=== PATIENT | female | born 1935 | race Caucasian/White ===

== ENCOUNTER 2017-06-14 08:42 | Emergency (ER) | payer OTHER ==
[2017-06-14 08:50] VITALS: TEMP 98.2
[2017-06-14 09:13] LABS: COLOR YELLOW; LEUKOCYTE ESTERASE,URINE 1+ (NEGATIVE); NITRITE,URINE NEGATIVE (NEGATIVE)
[2017-06-14 09:44] LABS: AMORPHOUS PRESENT /hpf (NONE-1+); MUCUS TRACE /lpf (NONE-1+)
--- NOTE | 2017-06-14 09:45 | EDPHY ---
H & P Stated Complaint: left flank pain this am which is now resolved Time Seen by Provider: 06/14/17 09:00 HPI/ROS: CHIEF COMPLAINT: left lower back pain HISTORY OF PRESENT ILLNESS: 81-year-old female presents emergency department with her complaining of acute on chronic left-sided lower back pain. Patient reports she has had back pain intermittently for many years and has been seen at [facility]. Her pain has been gone for about a year until 2 weeks ago when it started coming back. This morning her pain was worse. Pain is worse with movement and palpation. Patient denies fevers or chills, no urinary frequency, urgency or dysuria. She denies any recent trauma. No loss of control of her bowel or bladder, no saddle anesthesias. Patient states that since arriving to the emergency department her pain had almost completely resolved. REVIEW OF SYSTEMS: A comprehensive 10 point review of systems is otherwise negative aside from elements mentioned in the history of present illness. Source: Patient, Family Exam Limitations: No limitations - Personal History Current Tetanus/Diphtheria Vaccine: Yes - Medical/Surgical History Hx Asthma: No Hx Chronic Respiratory Disease: No Hx Diabetes: No Hx Cardiac Disease: No Hx Renal Disease: No Hx Cirrhosis: No Hx Alcoholism: No Hx HIV/AIDS: No Hx Splenectomy or Spleen Trauma: No Other PMH: pmh- atrial fibrillation, depression, hypothyroid, mesenteric adenitis, macular degeneration - Social History Smoking Status: Never smoked - Physical Exam Exam: Physical Exam Gen: Alert and Oriented, NAD HEENT: PERRL, moist mucous membranes NECK: no meningismus CV: regular rate and regular rhythm PULM: CTAB, no wheezes ABDOMEN: soft, non tender to palpation, BS present, no pulsatile masses BACK: No CVA tenderness, mild thoracic left-sided paraspinal tenderness to palpation NEURO: Neurologically grossly intact, 2/4 deep tendon reflexes patellar and Achilles, 5/5 strength, negative straight leg raise bilaterally EXTREMITIES: normal appearing SKIN: no rash or break in skin on exposed skin PSYCH: answers questions appropriately. Constitutional: Initial Vital Signs Temperature (C) 36.8 C 06/14/17 08:48 Heart Rate 94 06/14/17 08:48 Respiratory Rate 18 06/14/17 08:48 Blood Pressure 197/94 H 06/14/17 08:48 O2 Sat (%) 94 06/14/17 08:48 O2 Delivery Mode Room Air Allergies/Adverse Reactions: Penicillins Allergy (Verified 10/11/14 08:38) Rash Home Medications: Medication Instructions Recorded Levothyroxine [Synthroid 75 mcg 75 mcg PO DAILY 10/11/14 (*)] Ascorbic Acid [Vitamin C 500 mg 500 mg PO DAILY PRN 08/22/15 (*)] Aspirin 81mg (*) 06/14/17 Lidocaine 5% [Lidoderm 5% Patch 1 ea TD DAILY #5 patch 06/14/17 (*)] Medical Decision Making - Diagnostics Imaging Results: Imaging Impressions Thoracic Spine X-Ray 06/14/17 09:29 Impression: 1. No new osseous abnormality seen associated with the thoracic spine. 2. Underlying osteoporosis. Imaging: I viewed and interpreted images myself ED Course/Re-evaluation: Thoracic spine x-ray obtained. Urinalysis obtained showing no blood, 3-5 WBCs. I think the patient's back pain is musculoskeletal in nature. She has been given a dose of Tylenol and a lidocaine patch has been placed. I have recommended follow up with her primary care doctor early next week for referral for physical therapy. She is given a prescription for lidocaine patches and is given return precautions for any neurovascular compromise. Patient and are comfortable with this plan. Differential Diagnosis: The differential diagnosis for the patient's back pain included but was not limited to musculo-skeletal pain, epidural abscess, herniated disk, spinal fracture, cauda equina and intra-abdominal causes including urinary system. - Data Points Laboratory Results: 06/14/17 08:50 Urine Color YELLOW Urine Appearance MODERATELY TURBID Urine pH 8.0 H (5.0-7.5) Ur Specific [place] 1.020 (1.002-1.030) Urine Protein NEGATIVE (NEGATIVE) Urine Ketones NEGATIVE (NEGATIVE) Urine Blood NEGATIVE (NEGATIVE) Urine Nitrate NEGATIVE (NEGATIVE) Urine Bilirubin NEGATIVE (NEGATIVE) Urine Urobilinogen NEGATIVE EU EU (0.2-1.0) Ur Leukocyte Esterase 1+ H (NEGATIVE) Urine RBC 1-3 /hpf /hpf (0-3) Urine WBC 3-5 /hpf H /hpf (0-3) Ur Epithelial Cells TRACE /lpf /lpf (NONE-1+) Amorphous Sediment PRESENT /hpf /hpf (NONE-1+) Urine Mucus TRACE /lpf /lpf (NONE-1+) Urine Glucose NEGATIVE (NEGATIVE) Departure - Departure Disposition: Home, Routine, Self-Care Clinical Impression: Acute exacerbation of chronic low back pain Condition: Good Instructions: Chronic Back Pain (ED), Lower Back Exercises (ED) Additional Instructions: Take 650 mg of tylenol every 8 hours as needed for pain. Use lidocaine patches as prescribed. Follow up with Dr. Gibbons early next week. Return to the emergency department for any loss of control of her bowel or bladder, numbness to your groin, worsening symptoms, new symptoms or concerns. Referrals: Muna Gibbons MD [Primary Care Provider] - As per Instructions Prescriptions: Lidocaine 5% [Lidoderm 5% Patch (*)] 1 ea TD DAILY #5 patch
[2017-06-14] MEDS ORDERED: LIDOCAINE 5% 1 EA PATCH TD ONE ×2 (10:17→11:18)
[2017-06-14] MEDS ORDERED: ACETAMINOPHEN 325 MG TAB PO ONE (10:28)
[2017-06-14 11:22] VITALS: BP 146/77; PULSE 75; RESP 16; O2SAT 93
[2017-06-14] MEDS ORDERED: PATCH REMOVAL 1 EA PATCH TD SCH (21:00)
== END 2017-06-14 11:22 | disposition home or self-care (01) ==
DX: M54.5 Low back pain (principal); G89.29 Other chronic pain; Z79.82 Long term (current) use of aspirin

== ENCOUNTER 2017-06-18 09:59 | Emergency (ER) | payer OTHER ==
[2017-06-18 10:05] VITALS: O2SAT 93
--- NOTE | 2017-06-18 10:17 | EDPHY ---
HPI/HX/ROS/PE/MDM Narrative: CHIEF COMPLAINT: Left leg pain HPI: The patient is an 81 y/o female arriving with her complaining of left lower leg pain for the last 4 days. She has a history of atrial fibrillation, depression, and provoked PE. She was evaluated in the ED 4 days ago for chronic back pain and discharged with lidocaine patches and recommendation to follow up with Steven Sun and a PT. She complains of atraumatic pain along the lateral aspect of her left calf that is aggravated by standing and walking, but almost entirely by resting. She is able to ambulate without assistance despite pain. Her is concerned about a blood clot in her leg. She denies paresthesias, weakness, incontinence, dysuria, hematuria, hip pain, fever, or other complaints. She is supposed to take a daily 81mg aspirin, but does not use anticoagulants. REVIEW OF SYSTEMS: Aside from elements discussed in the HPI, a comprehensive 10-point review of systems was reviewed and is negative. PMH: Atrial fibrillation (previously on Coumadin), provoke PE, depression, hypothyroidism, mesenteric adenitis, depression, macular degeneration Prior medical records reviewed including ED visit 06/14/17 for back pain. SOCIAL HISTORY: at bedside. Retired. Lives in [place]. Nonsmoker. 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 ENT:Eyes are normal to inspection. ENT inspection normal. Neck: Normal inspection. Full range of motion. Respiratory:No respiratory distress. Breath sounds normal bilaterally. Cardiovascular: Regular rate and rhythm. Strong peripheral pulses. Normal cap refill. Abdomen:The abdomen is nontender to palpation. There are no peritoneal signs. Back: Normal to inspection. No tenderness to palpation. Skin: Normal color. No rash. Warm and dry. Extremities: Normal appearance. Full range of motion. Lower extremities are symmetric without discoloration, swelling, or tenderness. Neuro: Oriented x3. Normal motor function. Normal sensory function. ED Course: Patient declines pain medication. Left lower extremity US ordered. Left leg US: Femoral vein DVT. Reassessed patient and discussed imaging results. Her symptoms continue to be very minimal while at rest. She will be discharged on Eliquis with standard DVT follow up and care instructions. Strict return precautions given. She and her agree with this plan. MDM: This patient presents with leg pain and is found to have a DVT. She has been on both coumadin and Pradaxa in the past but is not currently on any anticoagulation. I discussed options with her and her , including lovenox henrique and they would like to try initial treatment with Eliquis. I stressed the importance of close follow-up with PCP. I see no indication of PE at this time, as patient has no tachycardia or complaint of chest pain or SOB. - Data Points Imaging Results: Imaging Impressions Extremity Venous Study 06/18/17 10:22 Impression: 1. Positive deep venous thrombosis in the left common femoral vein and adjacent femoral vein junction. 2. 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 Findings and recommendations discussed with Emergency Department physician, Martin Martin MD at 1249 hour, 06/18/2017. Final report concurs with initial preliminary interpretation. Imaging: Discussed imaging studies w/ banquet server on call Radiologist General Time Seen by Provider: 06/18/17 10:09 Initial Vital Signs: Initial Vital Signs Temperature (C) 36.6 C 06/18/17 10:02 Heart Rate 85 06/18/17 10:02 Respiratory Rate 18 06/18/17 10:02 Blood Pressure 156/63 H 06/18/17 10:02 O2 Sat (%) 93 06/18/17 10:02 O2 Delivery Mode Room Air Allergies/Adverse Reactions: Penicillins Allergy (Verified 06/18/17 10:02) Rash Home Medications: Medication Instructions Recorded Levothyroxine [Synthroid 75 mcg 75 mcg PO DAILY 10/11/14 (*)] Ascorbic Acid [Vitamin C 500 mg 500 mg PO DAILY PRN 08/22/15 (*)] Aspirin 81mg (*) 06/14/17 Lidocaine 5% [Lidoderm 5% Patch 1 ea TD DAILY #5 patch 06/14/17 (*)] Apixaban [Eliquis] 10 mg PO BID 7 Days tablet 06/18/17 Departure - Departure Disposition: Home, Routine, Self-Care Clinical Impression: Left leg DVT Condition: Good Instructions: Apixaban (By mouth), Deep Venous Thrombosis (ED) Additional Instructions: 1. Take Eliquis as prescribed every day. You have been given a prescription that lasts 1 week. You need to see your primary care provider to get a [facility] prescription for this. 2. Follow up with Dr. Gibbons within 72 hours without fail. 3. Return to the ED for severe pain, chest pain, shortness of breath, weakness or numbness in your foot, or other worsening of condition. Referrals: Muna Gibbons MD [Primary Care Provider] - As per Instructions Prescriptions: Apixaban [Eliquis] 10 mg PO BID 7 Days tablet Report Scribed for: Martin Martin Report Scribed by: Pattie Evans Date of Report: 06/18/17 Time of Report: 10:25 Physician Review and Approval Statement: Portions of this note were transcribed by an ED scribe. I personally performed the history, physical exam, and medical decision making; and confirm the accuracy of the information in the transcribed note.
[2017-06-18 12:53] VITALS: BP 159/73; PULSE 69; RESP 16; TEMP 98.1
[2017-06-18] MEDS ORDERED: APIXABAN 5 MG TAB PO ONE (13:02)
== END 2017-06-18 13:22 | disposition home or self-care (01) ==
DX: I82.402 Acute embolism and thrombosis of unspecified deep veins of left lower extremity (principal); Z79.82 Long term (current) use of aspirin

== ENCOUNTER 2017-06-23 12:59 | Emergency (ER) | payer OTHER ==
[2017-06-23 13:10] VITALS: TEMP 97.9
--- NOTE | 2017-06-23 14:41 | EDPHY ---
H & P Time Seen by Provider: 06/23/17 14:27 HPI/ROS: CHIEF COMPLAINT: DVT left lower extremity. HISTORY OF PRESENT ILLNESS: The patient is a an 81-year-old female with left lower DVT diagnosed 06/18/17. The patient was started on Eliquis, but has accidently been taking half of the prescribed dose. The patient's thought she was only supposed to take 1 tablet twice per day, but read the directions today and saw she was supposed to be taking two tablets twice per day. The patient feels like her pain has not improved. She continues to have pain with ambulation. Able to ambulate with a steady gait. The patient's is unsure if she appears in more pain. No change in swelling. No taking pain medication. She denies chest pain or shortness of breath. ROS: No numbness, weakness, excessive bleeding, syncopal episode, other injury. Past Medical/Surgical History: LLE DVT diagnosed 06/18/17, A-fib, Depression, Hypothyroidism, Mesenteric adenitis, Macular degeneration, Bakers cyst. Social History: . Lives at home with her . 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 Smoking Status: Never smoked Physical Exam: Alert, pleasant, no acute distress Chest: Normal respiratory rate, clear to auscultation CV: Regular rate rhythm Extremities: Left calf swelling and tenderness Skin: Warm and dry, no rash Neuro: Motor and sensory intact Vascular: Capillary refill brisk distally Constitutional: Initial Vital Signs Temperature (C) 36.6 C 06/23/17 13:05 Heart Rate 81 06/23/17 13:05 Respiratory Rate 18 06/23/17 13:05 Blood Pressure 133/82 H 06/23/17 13:05 O2 Sat (%) 95 06/23/17 13:05 O2 Delivery Mode Room Air Allergies/Adverse Reactions: Penicillins Allergy (Verified 06/23/17 13:07) Rash Home Medications: Medication Instructions Recorded Levothyroxine [Synthroid 75 mcg 75 mcg PO DAILY 10/11/14 (*)] Ascorbic Acid [Vitamin C 500 mg 500 mg PO DAILY PRN 08/22/15 (*)] Aspirin 81mg (*) 06/14/17 Lidocaine 5% [Lidoderm 5% Patch 1 ea TD DAILY #5 patch 06/14/17 (*)] Apixaban [Eliquis] 10 mg PO BID 7 Days tablet 06/18/17 Medical Decision Making ED Course/Re-evaluation: The patient has a known LLE DVT diagnosed 06/18/17. She was placed on Eliquis, but has been taking an inappropriate dose. According to her she has been taking 1 tablet twice per day instead of two tablets twice per day. The patient continues to have pain with ambulation and does not feel like her pain has improved. On examination the patient has swelling and tenderness to her left lower extremity. I do not feel that repeat imaging is indicated in this patient. There is no evidence of worsening DVT or PE. I have instructed the patient and her to continue taking the Eliquis, two tablets twice daily , until she follows up with her primary care physician on Saturday. The patient and her understand and agree with the plan. Differential Diagnosis: Differential diagnosis includes though is not limited to pulmonary embolism, worsening DVT, cellulitis, arterial compromise. - Data Points Medications Given: Discontinued Medications Acetaminophen (Tylenol) 650 mg PO EDNOW ONE Stop: 06/23/17 14:47 Last Admin: 06/23/17 15:15 Dose: 650 mg Departure - Departure Disposition: Home, Routine, Self-Care Clinical Impression: DVT (deep venous thrombosis) Qualifiers: DVT location: lower extremity Affected thrombotic vein of extremity: unspecified vein of extremity Chronicity: unspecified Laterality: left Qualified Code(s): I82.402 - Acute embolism and thrombosis of unspecified deep veins of left lower extremity Condition: Good Instructions: Deep Venous Thrombosis (ED) Additional Instructions: Continue taking two tablets of Eliquis twice per day until you see your primary care physician on Saturday. I recommend Tylenol for pain. The appropriate dose of Tylenol for you is 650mg every 4 to 9 hours as needed for pain. Referrals: Martin Martin MD [Primary Care Provider] - As per Instructions Report Scribed for: Juliane Bellamy Report Scribed by: Tita Huitron Date of Report: 06/23/17 Time of Report: 14:41 Physician Review and Approval Statement: 06/23/17 14:41 Portions of this note were transcribed by a medical assistant instructor. I personally performed the history, physical exam, and medical decision-making; and confirmed the accuracy of the information in the transcribed note.
[2017-06-23] MEDS ORDERED: ACETAMINOPHEN 325 MG TAB PO ONE (14:46)
[2017-06-23 15:20] VITALS: BP 126/79; PULSE 79; RESP 16; O2SAT 92
== END 2017-06-23 15:20 | disposition home or self-care (01) ==
DX: I82.402 Acute embolism and thrombosis of unspecified deep veins of left lower extremity (principal); Z79.82 Long term (current) use of aspirin

== ENCOUNTER 2017-09-25 15:02 | Emergency (ER) | payer OTHER ==
[2017-09-25 15:21] VITALS: RESP 16; O2SAT 93
--- NOTE | 2017-09-25 15:38 | EDPHY ---
H & P Time Seen by Provider: 09/25/17 15:28 HPI/ROS: CHIEF COMPLAINT: Urinary frequency HISTORY OF PRESENT ILLNESS: The patient is an 82 y/o female with a history of chronic back pain complaining of urinary frequency. She is urinating every 5 to 10 minutes at times and at least every 30 minutes. Associated with urinary hesitancy She denies flank pain pain, abdominal pain, vomiting, fever. REVIEW OF SYSTEMS: Constitutional: No fever, no chills Eyes: No drainage ENT: No sore throat Respiratory: No cough, no shortness of breath Cardiac: No chest pain Gastrointestinal: no vomiting, no abdominal pain Musculoskeletal: No leg pain or swelling Skin: No rash Neurological: No headache, no weakness Psychiatric: No anxiety Past Medical/Surgical History: Chronic back pain Social History: at bedside, lives in [place], retired Smoking Status: Never smoked Physical Exam: General Appearance: Alert, pleasant Eyes: Pupils equal and round, no conjunctival pallor ENT, Mouth: Mucous membranes moist Neck: Normal inspection Respiratory: Lungs are clear to auscultation Cardiovascular: Regular rate and rhythm Gastrointestinal: Abdomen is soft and non-tender Back: No CVA tenderness Neurological: Alert, nonfocal exam Skin: Warm and dry Extremities: Normal inspection Psychiatric: Mood and affect normal Constitutional: Initial Vital Signs Temperature (C) 36.6 C 09/25/17 15:18 Heart Rate 93 09/25/17 15:18 Respiratory Rate 16 09/25/17 15:18 Blood Pressure 167/80 H 09/25/17 15:18 O2 Sat (%) 93 09/25/17 15:18 O2 Delivery Mode Room Air Allergies/Adverse Reactions: Penicillins Allergy (Verified 09/25/17 15:17) Rash Home Medications: Medication Instructions Recorded Levothyroxine [Synthroid 75 mcg 75 mcg PO DAILY 10/11/14 (*)] Ascorbic Acid [Vitamin C 500 mg 500 mg PO DAILY PRN 08/22/15 (*)] Apixaban [Eliquis] 10 mg PO BID 7 Days tablet 06/18/17 Cephalexin [Keflex (*)] 500 mg PO QID #20 cap 09/25/17 Medical Decision Making ED Course/Re-evaluation: The patient presents with urinary frequency. Urinalysis indicates a UTI. Urine culture sent. Keflex prescribed and first dose given in the ED. - Data Points Laboratory Results: 09/25/17 15:25 Urine Color WALI Urine Appearance MODERATELY TURBID Urine pH 5.0 (5.0-7.5) Ur Specific [place] 1.026 (1.002-1.030) Urine Protein 1+ H (NEGATIVE) Urine Ketones NEGATIVE (NEGATIVE) Urine Blood NEGATIVE (NEGATIVE) Urine Nitrate NEGATIVE (NEGATIVE) Urine Bilirubin NEGATIVE (NEGATIVE) Urine Urobilinogen NEGATIVE EU EU (0.2-1.0) Ur Leukocyte Esterase 3+ H (NEGATIVE) Urine RBC 25-50 /hpf H /hpf (0-3) Urine WBC 50-182 /hpf H /hpf (0-3) Ur Epithelial Cells NONE SEEN /lpf /lpf (NONE-1+) Urine Bacteria 2+ /hpf H /hpf (NONE SEEN) Urine Glucose NEGATIVE (NEGATIVE) Medications Given: Discontinued Medications Cephalexin HCl (Keflex) 500 mg PO EDNOW ONE PRN Reason: Protocol Stop: 09/25/17 15:42 Last Admin: 09/25/17 15:46 Dose: 500 mg Departure - Departure Disposition: Home, Routine, Self-Care Clinical Impression: UTI (urinary tract infection) Qualifiers: Urinary tract infection type: acute cystitis Hematuria presence: without hematuria Qualified Code(s): N30.00 - Acute cystitis without hematuria Condition: Good Instructions: Urinary Tract Infection in Women (ED) Additional Instructions: 1. Take all of the pills in your prescriptions even if you feel better before your have finished them. 2. Return to the ED for flank pain, fever, or any concerns. Referrals: Muna Gibbons MD [Primary Care Provider] - As per Instructions Prescriptions: Cephalexin [Keflex (*)] 500 mg PO QID #20 cap Report Scribed for: Juliane Bellamy Report Scribed by: Aleksandra Wells Date of Report: 09/25/17 Time of Report: 15:38 Physician Review and Approval Statement: 09/25/17 15:38 Portions of this note were transcribed by a medical records analyst. I personally performed a history, physical exam, medical decision making, and confirmed accuracy of information the transcribed note.
[2017-09-25] MEDS ORDERED: CEPHALEXIN 500 MG CAP PO ONE (15:41)
[2017-09-25 15:48] LABS: COLOR AMBER; LEUKOCYTE ESTERASE,URINE 3+ (NEGATIVE); NITRITE,URINE NEGATIVE (NEGATIVE)
[2017-09-25 15:50] VITALS: BP 150/89; PULSE 92; TEMP 98.6
[2017-09-25 15:57] LABS: BACTERIA 2+ /hpf (NONE SEEN); RBC,URINE 25-50 /hpf (0-3); WBC,URINE 50-182 /hpf (0-3)
== END 2017-09-25 15:50 | disposition home or self-care (01) ==
DX: N30.00 Acute cystitis without hematuria (principal); B95.7 Other staphylococcus as the cause of diseases classified elsewhere

== ENCOUNTER 2017-11-29 09:54 | Emergency (ER) | payer OTHER ==
--- NOTE | 2017-11-29 12:42 | EDPHY ---
H & P Time Seen by Provider: 11/29/17 12:30 HPI/ROS: Chief complaint. Left hip and thigh pain. HPI. 82-year-old female history of DVT in June 2017 complains of similar pain to the left hip and thigh. She is still taking Eliquis however. She has had pain in the left hip and thigh for about 1 week. It does radiate down to bottom of her posterior left thigh. She denies injury. Does not have low back pain. She is able to walk. She is concerned about further blood clot. She has no chest pain or shortness of breath ROS Constitutional. no fever/chills, no weakness Eyes. no problems with vision ENT. no sore throat, no nasal drainage Cardiovascular. no chest pain Respiratory. no shortness of breath, no cough Abdominal. no abdominal pain, no nausea/vomiting, no diarrhea . no problems urinating MS. Left thigh and hip pain Skin. no rash Lymph. no swollen glands Neuro. no headache, no dizziness, no difficulty walking or with speech Past Medical/Surgical History: Atrial fibrillation, depression, hypothyroid, mesenteric adenitis, macular degeneration, Geiger cyst, DVT, PE Social History: , nonsmoker, no alcohol Smoking Status: Never smoked Physical Exam: General Appearance: Alert well-developed female mild distress vital signs are stable Eyes: Pupils equal and round no pallor or injection. ENT, Mouth: Mucous membranes are moist. Respiratory: There are no retractions, lungs are clear to auscultation. Cardiovascular: Regular rate and rhythm. Gastrointestinal: Abdomen is soft and nontender, no masses, bowel sounds normal. Neurological: Awake and alert, sensory and motor exams grossly normal. Skin: Warm and dry, no rashes. Musculoskeletal: Neck is supple nontender. Extremities tenderness diffusely about the left hip and then posterior medial thigh. No swelling. No rash Psychiatric: Patient is oriented X 3, there is no agitation. Constitutional: Initial Vital Signs Temperature (C) 36.4 C 11/29/17 09:57 Heart Rate 75 11/29/17 09:57 Respiratory Rate 16 11/29/17 09:57 Blood Pressure 159/75 H 11/29/17 09:57 O2 Sat (%) 94 11/29/17 09:57 O2 Delivery Mode Room Air Allergies/Adverse Reactions: Penicillins Allergy (Verified 09/25/17 15:17) Rash Home Medications: Medication Instructions Recorded Levothyroxine [Synthroid 75 mcg 75 mcg PO DAILY 10/11/14 (*)] Ascorbic Acid [Vitamin C 500 mg 500 mg PO DAILY PRN 08/22/15 (*)] Apixaban [Eliquis] 10 mg PO BID 7 Days tablet 06/18/17 Cephalexin [Keflex (*)] 500 mg PO QID #20 cap 09/25/17 Medical Decision Making - Diagnostics Imaging Results: Imaging Impressions Extremity Venous Study 11/29/17 12:42 Impression: 1. Thrombus involving one of the 2 paired femoral veins in the mid thigh. This has continued to improve when compared to the prior study. No additional evidence of DVT left lower extremity. 2. Geiger's cyst left popliteal fossa. Findings discussed with Nick Mendoza M.D. at 14:05 hour, 11/29/2017. Hip X-Ray 11/29/17 12:42 Impression: Minimal early degenerative change of the left hip. 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 Ultrasound of the left lower extremity shows resolving but continued thrombus in the femoral vein. Improved from previous study. X-ray left hip shows some degenerative change of the left hip. No fracture dislocation ED Course/Re-evaluation: Re-evaluation 2:20 p.m.. Patient is stable. She and her and I discussed imaging study results. Treatment plan, criteria for return and importance of follow-up and further evaluation. They expressed understanding and agreement Differential Diagnosis: Patient continues to have some DVT but it is resolving. She is continuing to take Eliquis daily. No evidence for fracture dislocation. She really does not have any low back pain to make me think that this is lumbar radiculopathy. Departure - Departure Disposition: Home, Routine, Self-Care Clinical Impression: Hip pain, left Condition: Good Instructions: Hip Pain (ED) Additional Instructions: Tylenol 650 mg every 6 hr as needed for pain. Activity as tolerated. Return for worsening symptoms. Follow up with Dr. Gibbons for continuing pain Referrals: Muna Gibbons MD [Primary Care Provider] - 5-7 days, call for appt.
[2017-11-29 13:53] VITALS: O2SAT 95
[2017-11-29 15:02] VITALS: BP 145/79; PULSE 66; RESP 18; TEMP 98.6
== END 2017-11-29 15:02 | disposition home or self-care (01) ==
DX: M25.552 Pain in left hip (principal)

== ENCOUNTER 2019-02-11 13:08 | Emergency (ER) | payer OTHER ==
[2019-02-11] MEDS ORDERED: HYDROmorphONE/DILAUDID 2 MG/ML INJ IVP ONE (13:39)
[2019-02-11] MEDS ORDERED: NS 1,000 ML IV ONE (13:39)
--- NOTE | 2019-02-11 13:41 | EDPHY ---
H & P Stated Complaint: L flank/back pain Time Seen by Provider: 02/11/19 13:32 HPI/ROS: CHIEF COMPLAINT: Left CVA pain HISTORY OF PRESENT ILLNESS: Patient is a 83-year-old female who comes to the emergency department complaining of left back pain that began this morning. She cannot find a comfortable position. No history of trauma. No fever. No dysuria or hematuria. No abdominal pain, no nausea vomiting or diarrhea. No chest pain or shortness of breath. tells me that this happens to her occasionally and that she typically uses Aspercreme and lidocaine cream and Tylenol and her symptoms improve after a day or 2. They have tried these tactics today without any success. Severity: Severe Modifying factors: None REVIEW OF SYSTEMS: Constitutional: denies: chills, fever, recent illness, recent injury EENTM: denies: blurred vision, double vision, nose congestion Respiratory: denies: cough, shortness of breath Cardiac: denies: chest pain, irregular heart rate, lightheadedness, palpitations Gastrointestinal/Abdominal: denies: abdominal pain, diarrhea, nausea, vomiting, blood streaked stools Genitourinary: denies: dysuria, frequency, hematuria, pain Musculoskeletal: See HPI Skin: denies: lesions, rash, jaundice, bruising Neurological: denies: headache, numbness, paresthesia, tingling, dizziness, weakness Hematologic/Lymphatic: denies: blood clots, easy bleeding, easy bruising Immunologic/allergic: denies: HIV/AIDS, transplant 10 systems reviewed and negative except as noted EXAM: GENERAL: Uncomfortable, rolling around in bed HEAD: Atraumatic, normocephalic. EYES: Pupils equal round and reactive to light, extraocular movements intact, sclera anicteric, conjunctiva are normal. ENT: TMs normal, nares patent, oropharynx clear without exudates. Moist mucous membranes. NECK: Normal range of motion, supple without lymphadenopathy or JVD. LUNGS: Breath sounds clear to auscultation bilaterally and equal. No wheezes rales or rhonchi. HEART: Regular rate and rhythm without murmurs, rubs or gallops. ABDOMEN: Soft, nontender, normoactive bowel sounds. No guarding, no rebound. No masses appreciated. BACK: Left CVA pain but No CVA tenderness, no spinal tenderness, step-offs or deformities EXTREMITIES: Normal range of motion, no pitting or edema. No clubbing or cyanosis. NEUROLOGICAL: Cranial nerves II through XII grossly intact. Normal speech, normal gait. 5/5 strength, normal movement in all extremities, normal sensation , normal reflexes PSYCH: Normal mood, normal affect. SKIN: Warm, dry, normal turgor, no visible rashes or lesions. Source: Patient Exam Limitations: No limitations - Personal History Current Tetanus/Diphtheria Vaccine: Yes Current Tetanus Diphtheria and Acellular Pertussis (TDAP): Yes - Medical/Surgical History Hx Asthma: No Hx Chronic Respiratory Disease: No Hx Diabetes: No Hx Cardiac Disease: No Hx Renal Disease: No Hx Cirrhosis: No Hx Alcoholism: No Hx HIV/AIDS: No Hx Splenectomy or Spleen Trauma: No Other PMH: pmh- atrial fibrillation, depression, hypothyroid, mesenteric adenitis, macular degeneration, Bakers cyst, DVT (dx 06/18/17), PE - Family History Significant Family History: No pertinent family hx - Social History Smoking Status: Never smoked Alcohol Use: Sober Drug Use: None Constitutional: Initial Vital Signs Temperature (C) 36.6 C 02/11/19 13:16 Heart Rate 96 02/11/19 13:16 Respiratory Rate 20 02/11/19 13:16 Blood Pressure 168/83 H 02/11/19 13:16 O2 Sat (%) 94 02/11/19 13:16 O2 Delivery Mode Room Air Allergies/Adverse Reactions: Penicillins Allergy (Verified 02/11/19 13:15) Rash Home Medications: Medication Instructions Recorded Levothyroxine [Synthroid 75 mcg 75 mcg PO DAILY 10/11/14 (*)] Ascorbic Acid [Vitamin C 500 mg 500 mg PO DAILY PRN 08/22/15 (*)] Apixaban [Eliquis] 10 mg PO BID 7 Days tablet 06/18/17 Cephalexin [Keflex] 500 mg PO TID #21 cap 02/11/19 Hydrocodone/APAP 5/325 [[place] 1 - 2 tab PO Q4H PRN #7 tab 02/11/19 5/325 (RX)] Mirtazapine 02/11/19 Medical Decision Making - Diagnostics Imaging Results: Imaging Impressions Abdomen/Pelvis CT 02/11/19 13:39 Impression: 1. No nephrolithiasis or hydronephrosis. 2. L4-L5 severe central canal stenosis secondary to degenerative grade 1 anterolisthesis and severe bilateral facet arthropathy. 3. Atherosclerotic aorta and iliac arteries without aneurysm. 4. No diverticulitis, appendicitis, or bowel obstruction. Attention: This CT examination is specifically designed to evaluate patients who are clinically suspected of having acute obstructive uropathy. This examination does not use radiographic contrast, and as such, provides only a limited evaluation of the abdomen, pelvis and retroperitoneum. If there is further clinical suspicion for pathological conditions other than obstructive uropathy, a complete CT evaluation of the abdomen and pelvis utilizing intravenous, oral, and rectal contrast should be considered. Findings and recommendations discussed with Emergency Department physician, Jarret Tarango at 1416 hour, 02/11/2019. Final report concurs with initial preliminary interpretation. Imaging: Discussed imaging studies w/ call center operations manager Radiologist ED Course/Re-evaluation: 2:50 p.m. the patient feels completely better. She thinks that maybe she had a kidney stone but has passed . CT is unremarkable. 3:30 p.m. discussed the patient's urinalysis. Will give a dose of Rocephin and discharged with Keflex. She remains symptom free at this time. Differential Diagnosis: Partial list of the Differential diagnosis considered include but were not limited to; urinary tract infection, kidney stone, pyelonephritis, muscle strain and although unlikely based on the history and physical exam, I also considered sepsis, radiculopathy, aneurysm, dissection, fracture. I discussed these differential diagnoses and the plan with the patient as well as the usual and expected course. The patient understands that the diagnosis is provisional and that in medicine we are not always correct and that further workup is often warranted. Usual and customary warnings were given. All of the patient's questions were answered. The patient was instructed to return to the emergency department should the symptoms at all worsen or return, otherwise to followup with the physician as we discussed. - Data Points Laboratory Results: Laboratory Results 02/11/19 14:10 02/11/19 14:10 02/11/19 02/11/19 02/11/19 15:00 14:10 14:10 WBC 6.52 10^3/uL 10^3/uL (3.80-9.50) RBC 4.43 10^6/uL 10^6/uL (4.18-5.33) Hgb 13.5 g/dL g/dL (12.6-16.3) Hct 40.9 % % (38.0-47.0) MCV 92.3 fL fL (81.5-99.8) MCH 30.5 pg pg (27.9-34.1) MCHC 33.0 g/dL g/dL (32.4-36.7) RDW 13.6 % % (11.5-15.2) Plt Count 277 10^3/uL 10^3/uL (150-400) MPV 9.5 fL fL (8.7-11.7) Neut % (Auto) 64.4 % % (39.3-74.2) Lymph % (Auto) 19.3 % % (15.0-45.0) [place] % (Auto) 13.7 % H % (4.5-13.0) Eos % (Auto) 0.9 % % (0.6-7.6) Baso % (Auto) 1.2 % % (0.3-1.7) Nucleat RBC Rel Count 0.0 % % (0.0-0.2) Absolute Neuts (auto) 4.20 10^3/uL 10^3/uL (1.70-6.50) Absolute Lymphs (auto) 1.26 10^3/uL 10^3/uL (1.00-3.00) Absolute Monos (auto) 0.89 10^3/uL H 10^3/uL (0.30-0.80) Absolute Eos (auto) 0.06 10^3/uL 10^3/uL (0.03-0.40) Absolute Basos (auto) 0.08 10^3/uL 10^3/uL (0.02-0.10) Absolute Nucleated RBC 0.00 10^3/uL 10^3/uL (0-0.01) Immature Gran % 0.5 % % (0.0-1.1) Immature Gran # 0.03 10^3/uL 10^3/uL (0.00-0.10) Sodium 140 mEq/L mEq/L (135-145) Potassium 4.2 mEq/L mEq/L (3.5-5.2) Chloride 108 mEq/L mEq/L (97-110) Carbon Dioxide 21 mEq/l L mEq/l (22-31) Anion Gap 11 mEq/L mEq/L (6-14) BUN 25 mg/dL H mg/dL (7-23) Creatinine 0.8 mg/dL mg/dL (0.6-1.0) Estimated GFR > 60 Glucose 108 mg/dL H mg/dL (70-100) Calcium 9.7 mg/dL mg/dL (8.5-10.4) Total Bilirubin 0.1 mg/dL mg/dL (0.1-1.4) Conjugated Bilirubin 0.0 mg/dL mg/dL (0.0-0.5) Unconjugated Bilirubin 0.1 mg/dL mg/dL (0.0-1.1) AST 23 IU/L IU/L (14-46) ALT 29 IU/L IU/L (9-52) Alkaline Phosphatase 74 IU/L IU/L (38-126) Total Protein 6.3 g/dL g/dL (6.3-8.2) Albumin 3.9 g/dL g/dL (3.5-5.0) Lipase 93 IU/L IU/L (23-300) Urine Color WALI Urine Appearance MODERATELY TURBID Urine pH 5.0 (5.0-7.5) Ur Specific [place] 1.024 (1.002-1.030) Urine Protein NEGATIVE (NEGATIVE) Urine Ketones NEGATIVE (NEGATIVE) Urine Blood NEGATIVE (NEGATIVE) Urine Nitrate NEGATIVE (NEGATIVE) Urine Bilirubin NEGATIVE (NEGATIVE) Urine Urobilinogen NEGATIVE EU EU (0.2-1.0) Ur Leukocyte Esterase 3+ H (NEGATIVE) Urine RBC 3-5 /hpf H /hpf (0-3) Urine WBC 25-50 /hpf H /hpf (0-3) Ur Epithelial Cells 2+ /lpf H /lpf (NONE-1+) Ur Renal Epithelial Cell 1+ /hpf H /hpf (NONE SEEN) Urine Bacteria TRACE /hpf H /hpf (NONE SEEN) Urine Mucus 1+ /lpf /lpf (NONE-1+) Urine Glucose NEGATIVE (NEGATIVE) Medications Given: Discontinued Medications Hydromorphone HCl (Dilaudid) 0.5 mg IVP EDNOW ONE Stop: 02/11/19 13:40 Last Admin: 02/11/19 14:07 Dose: 0.5 mg Sodium Chloride (Ns) 1,000 mls @ 0 mls/hr IV EDNOW ONE; Wide Open PRN Reason: Protocol Stop: 02/11/19 13:40 Last Admin: 02/11/19 14:07 Dose: 1,000 mls Ceftriaxone Sodium/Dextrose (Rocephin 1 Gm (Premix)) 50 mls @ 100 mls/hr IV EDNOW ONE PRN Reason: Protocol Stop: 02/11/19 15:57 Last Admin: 02/11/19 15:37 Dose: 50 mls Departure - Departure Disposition: Home, Routine, Self-Care Clinical Impression: Urinary tract infection Qualifiers: Urinary tract infection type: acute cystitis Hematuria presence: without hematuria Qualified Code(s): N30.00 - Acute cystitis without hematuria Condition: Good Instructions: Urinary Tract Infection in Women (ED) Referrals: Muna Gibbons MD [Primary Care Provider] - 2-3 days, if not improved Prescriptions: Cephalexin [Keflex] 500 mg PO TID #21 cap Hydrocodone/APAP 5/325 [[place] 5/325 (RX)] 1 - 2 tab PO Q4H PRN #7 tab PRN Reason: Pain, Moderate
[2019-02-11 14:28] LABS: PLATELET COUNT 277 10^3/uL (150-400)
[2019-02-11 16:42] VITALS: BP 143/82
== END 2019-02-11 16:43 | disposition home or self-care (01) ==
DX: N30.00 Acute cystitis without hematuria (principal); E86.9 Volume depletion, unspecified
CPT/HCPCS: 74176; 96361; 96365; 96375; 99285; J0696; J1170